=== PATIENT | female | born 1970 | race Caucasian/White ===

== ENCOUNTER → 2020-10-31 | Outpatient (CLI) | payer BC, OTHER ==
[~2020-10-31] MED LIST: ACETAMINOPHEN-1 EAC1 PO; AMLODIPINE BESY10 MG PO; ASPIRIN EC81 MG PO; ASPIRIN81 MG PO; ATORVASTATIN CA20 MG PO; COZAAR100 MG PO; CYCLOBENZAPRINE10 MG PO; CYMBALTA30 MG PO; FLONASE 0.05% N16 GM; IBUPROFEN800 MG PO; ISOSORBIDE MONO60 MG PO; LIPITOR TAB 2020 MG PO; LOPRESSOR 25 MG25 MG PO; LOPRESSOR 50 MG50 MG PO; MELATONIN5 MG PO; NAPROXEN500 MG PO; NEURONTIN100 MG PO
== END ==
LOC: KOH-I 10-07 08:30
DX: R79.89 Other specified abnormal findings of blood chemistry (principal); M79.672 Pain in left foot; M79.671 Pain in right foot; G89.29 Other chronic pain; K76.0 Fatty (change of) liver, not elsewhere classified; Z90.49 Acquired absence of other specified parts of digestive tract; Z98.890 Other specified postprocedural states
CPT/HCPCS: 73630; 76700

== ENCOUNTER → 2020-12-05 | Outpatient (CLI) | payer BC, OTHER ==
[2020-12-05 09:32] LABS: HEMOGLOBIN 16.3 gm/dl (12.3-15.3); RED BLOOD COUNT 4.95 M/UL (4.00-5.10); WHITE BLOOD COUNT 9.5 K/UL (4.5-11.0)
[2020-12-05 09:45] LABS: BUN/CREATININE RATIO 21 (0-10)
== END ==
LOC: LAB 08:42
PROVIDERS: Internal Medicine Interventional Cardiology
DX: I10 Essential (primary) hypertension (principal); I21.9 Acute myocardial infarction, unspecified; F41.9 Anxiety disorder, unspecified; F32.9 Major depressive disorder, single episode, unspecified; E78.00 Pure hypercholesterolemia, unspecified; M19.90 Unspecified osteoarthritis, unspecified site; R07.89 Other chest pain; R94.39 Abnormal result of other cardiovascular function study; Z79.82 Long term (current) use of aspirin
CPT/HCPCS: 36415; 80048; 85025; 85610; 85730; 93005

== ENCOUNTER 2021-02-09 11:47 | Observation (INO) | payer BC, OTHER ==
[~2021-02-09] VITALS: Ht 172.7 cm; Wt 90.7 kg
[~2021-02-09 11:47] MED LIST changes: -ACETAMINOPHEN-1 EAC1 PO; -COZAAR100 MG PO; -FLONASE 0.05% N16 GM; -ISOSORBIDE MONO60 MG PO; -LOPRESSOR 25 MG25 MG PO; -LOPRESSOR 50 MG50 MG PO; -MELATONIN5 MG PO; -NAPROXEN500 MG PO; -NEURONTIN100 MG PO
[2021-02-09 14:02] LABS: HEMOGLOBIN 15.3 gm/dl (12.3-15.3); RED BLOOD COUNT 4.6 M/UL (4.00-5.10); WHITE BLOOD COUNT 11.4 K/UL (4.5-11.0)
[2021-02-09 14:28] LABS: BUN/CREATININE RATIO 19 (0-10)
[2021-02-09] MEDS ORDERED: COZAAR100 MG PO (16:56)
[2021-02-09] MEDS ORDERED: LOPRESSOR 50 MG50 MG PO (16:59)
[2021-02-09] MEDS ORDERED: MELATONIN5 MG PO (17:48)
[2021-02-09] MEDS ORDERED: NEURONTIN100 MG PO (18:37)
[2021-02-09] MEDS ORDERED: FLONASE 0.05% N16 GM (18:38)
[2021-02-09] MEDS ORDERED: ISOSORBIDE MONO60 MG PO (18:38)
[2021-02-09] MEDS ORDERED: NAPROXEN500 MG PO (18:39)
[2021-02-09] MEDS ORDERED: ACETAMINOPHEN-1 EAC1 PO (19:43)
[2021-02-10 03:18] LABS: HEMOGLOBIN 14.4 gm/dl (12.3-15.3); RED BLOOD COUNT 4.32 M/UL (4.00-5.10); WHITE BLOOD COUNT 11.9 K/UL (4.5-11.0)
[2021-02-10 03:51] LABS: BUN/CREATININE RATIO 25 (0-10)
[2021-02-11 03:53] LABS: HEMOGLOBIN 13.5 gm/dl (12.3-15.3); RED BLOOD COUNT 4.08 M/UL (4.00-5.10); WHITE BLOOD COUNT 10.8 K/UL (4.5-11.0)
[2021-02-11 04:10] LABS: BUN/CREATININE RATIO 24 (0-10)
--- NOTE | 2021-02-11 13:25 | NUR ---
RENE STATE THAT HER ARM HURTS FROM THE PROCEDURE. REPORTS NO ADDITIONAL PAIN ARM BAND IS LOOSENED. ARM BAND BEING LOOSENED 2ML PER 15 MINUTES.
[2021-02-11] MEDS ORDERED: ATORVASTATIN CA20 MG PO (14:25)
[2021-02-11] MEDS ORDERED: LOPRESSOR 25 MG25 MG PO (14:25)
== END 2021-02-11 17:50 | disposition home or self-care (01) ==
LOC: ER1 11:47 → CDU 15:37 → MED SURG 4 15:37
PROVIDERS: Internal Medicine; Physician Assistant; ADMIT Family Medicine
PROC: 4A023N7 Measurement of Cardiac Sampling and Pressure, Left Heart, Percutaneous Approach (ICD-10-PCS; principal; 2021-02-11)
PROC: B2111ZZ Fluoroscopy of Multiple Coronary Arteries using Low Osmolar Contrast (ICD-10-PCS; 2021-02-11)
PROC: B2151ZZ Fluoroscopy of Left Heart using Low Osmolar Contrast (ICD-10-PCS; 2021-02-11)
DX: I25.110 Atherosclerotic heart disease of native coronary artery with unstable angina pectoris (principal); I10 Essential (primary) hypertension; R00.1 Bradycardia, unspecified; F41.9 Anxiety disorder, unspecified; G89.29 Other chronic pain; M54.9 Dorsalgia, unspecified; F17.210 Nicotine dependence, cigarettes, uncomplicated; E66.9 Obesity, unspecified; Z68.30 Body mass index [BMI] 30.0-30.9, adult; Z20.822 Contact with and (suspected) exposure to COVID-19; Z79.899 Other long term (current) drug therapy; Z88.0 Allergy status to penicillin
CPT/HCPCS: 36415; 71045; 80048; 80053; 82550; 82553; 83735; 83874; 84439; 84443; 84484; 85025; 85027; 93005; 96374; 99152; 99153; 99285; C1769; C1894; G0378; J1644; J2250; J2270; J3010; J7040; Q9967; U0002

== ENCOUNTER → 2021-10-29 | Outpatient (CLI) | payer BC ==
[~2021-10-29] MED LIST changes: +ACETAMINOPHEN-1 EAC1 PO; +COZAAR100 MG PO; +FLONASE 0.05% N16 GM; +ISOSORBIDE MONO60 MG PO; +LOPRESSOR 25 MG25 MG PO; +LOPRESSOR 50 MG50 MG PO; +MELATONIN5 MG PO; +NAPROXEN500 MG PO; +NEURONTIN100 MG PO
== END ==
LOC: US 13:06
DX: M79.661 Pain in right lower leg (principal)
CPT/HCPCS: 93971